=== PATIENT | female | born 1995 | race Caucasian/White ===

== ENCOUNTER 2018-04-30 07:02 | Day surgery (SDC) | payer BC ==
[~2018-04-30] VITALS: Ht 167.6 cm; Wt 66.2 kg
[~2018-04-30 07:02] MED LIST: HYDACE5 PO; IBUP600 PO; PROM25 PO
[2018-04-30] MEDS ORDERED: VALA500 PO (07:52)
== END 2018-04-30 09:30 | disposition home or self-care (01) ==
LOC: ORSCSDS 07:02
PROVIDERS: Otolaryngology
PROC: 0CBPXZZ Excision of Tonsils, External Approach (ICD-10-PCS; principal; 2018-04-30 08:15)
PROC: 0C5QXZZ Destruction of Adenoids, External Approach (ICD-10-PCS; principal; 2018-04-30 08:15)
DX: J35.01 Chronic tonsillitis (principal); J02.9 Acute pharyngitis, unspecified; Z79.899 Other long term (current) drug therapy
CPT/HCPCS: 88304; J0330; J1100; J2250; J2405; J3010; J7120

== ENCOUNTER → 2018-09-13 | Outpatient (CLI) | payer BC, OTHER ==
[~2018-09-13] MED LIST changes: +VALA500 PO
== END | disposition home or self-care (01) ==
LOC: LAB 15:12 → LAB SHORT 15:12
DX: Z11.3 Encounter for screening for infections with a predominantly sexual mode of transmission (principal); N39.0 Urinary tract infection, site not specified
CPT/HCPCS: 87086